=== PATIENT | female | born 1990 | race Caucasian/White ===

== ENCOUNTER 2020-05-02 19:36 | Outpatient (CLI) | payer MEDICAID ==
[2020-05-02] VITALS (7 sets, daily range): BP systolic 121–137; BP diastolic 70–83; PULSE 106–125; TEMP 97.8–97.9
--- NOTE | 2020-05-02 19:30 | NUR ---
Pt wheeled to room by EMS [facility]. Pt assisted to bed. Pt hysterically crying and complaining of abdomen pain. Pt states the pain is constent and is in her "down ther" and reports feeling pressure. Pt states pain just started right before she was brought to the hospital by ambulance. Pt denies leaking of fluids or vaginal bleeding. Pt also states she has not felt baby move as much today. Reports being G6L4 and due 06/23/2020. SVE completed closed/thick/high, amniotrace completed due to small amount of fluid noted to pts underwear. Amniotrace negative with no fluid noted on exam. Vannesa RN checked cervix behind this RN due to pts pain. SVE same per RN. Pt encouraged to control and focus on her breathing. Pt continuing to cry. Pt is escorted by [facility] supervisor blueprinting and photocopy. 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 Pt doctors in [place]. Pt reports no problems during this other then recurrent kidney infections where she has been hospitalized 7 times and states she went septic those 7 times. Pt states "her doctor in [place] called her stating she had a kidney infection and was trying to decide if she needed to be hospitalized for this infection". Pt denies being put on any abx. Pt denies using any drugs or alcohol at this time. 1938: called by Khalida BEE and orders received. See physican notification. Pt assessment and VS taken. Plan of care explained to pt and orders received. [employer] at bedside to question pt. Pt continuing to cry. 1953: Pt off monitors to use restroom. This RN remains at pts side to observe UDS. UA and UDS completed and assisted back to bed. Pt more relaxed. States pain is about the same as when she came in but states pain is worse when she stands up. 2029: called unit and update given to provider. Provider at home reviewing FHR strip and lab work. New orders received. See physican notification. Once orders completed pt can discharge to [facility] per . Pt updated on new plan of care. 2045: Pt took self off monitors and ambulates to bathroom. 2049: This RN to room. Pt in bathroom and states "she is trying to poop." Pt also states she would like us to talk with her doctor in [place] "because he knows i go septic with kidney infections and that oral antibotics do not work for me." Educated pt to come back to bed and this RN will speak with her on plan of care. Pt states she wants to be transfered to [place]. Again encouraged pt to return to bed and not to bare down on toliet for a bowel movment. 2054: Pt wipes at this time and jossy red blood noted to toliet paper with multiple small clots. Pt instantly startes hysterically crying and states "I am scared" and "this is what happened last time when my placenta ruptured." Pt assisted back to bed by this RN. 2056: Monitors reapplied and comfort given to pt. Encouraged pt to try and concentrate on breathing. 2100: [facility] bleeding. Orders received to recheck cervix. 2104: SVE unchanged with jossy red blood noted to exam glove and one small clot. 2108: called for update. Provider states she is in the parking lot. 2111: at pts bedside. SVE completed by provider with no cervical change. Plan of care explained to pt. Provider states she would like if pt stayed over night so we can evaluate bleeding. Pt verbalizes her understanding and does not have any questions. Pt does report to provider at this time that she had vaginal bleeding earlier in this and was supposed to be on bedrest till the 5th. New orders received. remains on unit and reviews FHR strip. [employer] supervisor blueprinting and photocopy also remains on unit. 2134: LR bolus infusing without difficulties. 2137: Betamethasone administered per orders. Educated pt on needing to receive a second shot of betamethasone in 24 hours. Pt verbalizes her understanding. 2204: at bedside. SVE per provider with no change. No additional bleeding noted to exam glove. Pads changed to better assess bleeding. Provider to remain on unit. [employer] states they will be leaving due to pt staying over night. [employer] supervisor blueprinting and photocopy states they will put a warrant out for pts arrest and we do not need to call them when pt discharges from hospital, even if it ends up being in the next couple of hours. [employer] talking with this RN and . 2220: Monitors off and chemical processing technician in room to complete ultrasound. at bedside to review scan. 2230:Dr Green reviews ultrasound in room and states she does not see any concerns and states there is no abruption from what she can see. Pt wanting to discharge home at this time. States her contractions are now "just murray kiser contractions and that she has been having them her whole ." Pt very eager to discharge home and wanting her sister to come and pick her up. Orders received from provider to observe pt till midnight and if bleeding does not continue she can discharge home. Pt verbalizes her understanding. 2240: Ultrasound completed and monitors reapplied. Pt more talkative at this time and really wanting to discharge home. 2300: Pt called out stating her sister is here to pick her up. Educated pt on orders and observing pt till midnight. Pt states "oh she will not do that she has 3 kids." Then pt continues to say "my sister had to get someone to drive her here because she did not have gas in her car." Again stated 's orders. Pt then states "she can not come back later tonight or tomorrow morning to get me and i do not know anyone else here." Bleeding assessed and no blood noted to pad placed at 2205. 230: called and updated on pt. New orders received that pt can discharge home now. Pt off monitors and educated to changed into clothes. Pt sister at bedside. 2325: Discharge instructions given to pt and stressed importance of going to nearest hospital if bleeding or pain returns. Also educated pt on the importance of calling her provider in [place] tomorrow morning to recieve her second dose of betamethasone. Pt verablizes and signs her understanding. Pt ambulatory off unit and home with sister.
[2020-05-02 20:05] LABS: BASO % 0.3 % (0.0-2.0); EOS # 0.1 (0.0-0.7); EOS % 0.5 % (0-4.0); GRAN # 9.8 (1.4-6.5); GRAN % 78.9 % (42.2-75.2); LYMPH # 1.6 (1.2-3.4); MEAN CELL VOLUME 81 fl (80.0-100.0); MEAN CORPUSCULAR HGB CONC 30 g/dl (33.0-37.0); MEAN PLATELET VOLUME 10.9 fl (7.4-10.4); MONO # 0.7 (0.1-0.6); MONO % 5.8 % (1.7-9.3); PLATELET COUNT 361 K/mm3 (130-400); RED BLOOD COUNT 3.64 M/mm3 (4.10-5.30); REDCELL DISTRIBUTION WIDTH-CV 16.7 % (11.5-14.5)
[2020-05-02 20:10] LABS: COLLECTION METHOD CLEAN CATCH
[2020-05-02] MEDS ORDERED: AMITRIPTYLINE H75 M1 PO (20:11)
[2020-05-02 20:12] LABS: ALBUMIN 3.4 gm/dL (3.5-5.0); BILIRUBIN,TOTAL 0.2 mg/dL (0.0-1.0); CALCIUM 9.1 mg/dL (8.4-10.2); CREATININE, serum 0.63 (0.52-1.25); POTASSIUM 3.7 mmol/L (3.4-5.0); TOTAL PROTEIN 7.1 gm/dL (6.4-8.2)
[2020-05-02] MEDS ORDERED: ZANAFLEX 4MG TAB4 MG PO (20:12)
[2020-05-02 20:16] LABS: HEMATOCRIT 29.5 % (37.0-47.0); HEMOGLOBIN 8.7 g/dl (12.5-16.0); MEAN CORPUSCULAR HEMOGLOBIN 24 pg (27.0-31.0)
[2020-05-02 20:17] LABS: MUCOUS Present /lpf; PH 6 (5-8); SQUAMOUS EPITHELIAL 0-2 /hpf; URINE APPEARANCE Hazy; URINE BACTERIA Many /hpf; URINE BILIRUBIN Negative (NEGATIVE); URINE BLOOD 1+ (NEGATIVE); URINE CALCIUM OXALATE CRYSTAL Present /hpf; URINE COLOR Yellow; URINE GLUCOSE Negative (NEGATIVE); URINE KETONE Negative (NEGATIVE); URINE LEUKOCYTE ESTERASE Trace (NEGATIVE); URINE NITRATE Positive (NEGATIVE); URINE PROTEIN(semi-quant) 1+ (NEGATIVE); URINE UROBILINOGEN Negative (NEGATIVE); URINE WBC 20-50 /hpf
[2020-05-02 20:48] LABS: TRICYCLIC ANTIDEPRESS URINE POSITIVE
== END 2020-05-02 23:25 | disposition home or self-care (01) ==
LOC: LDRO 19:36
PROVIDERS: Obstetrics & Gynecology
DX: O46.93 Antepartum hemorrhage, unspecified, third trimester (principal); Z3A.32 32 weeks gestation of pregnancy
CPT/HCPCS: J0696; J0702; J7120